=== PATIENT | male | born 1995 | race Caucasian/White ===

== ENCOUNTER 2018-11-06 12:34 | Emergency (ER) | payer OTHER ==
[2018-11-06 12:46] VITALS: BP 120/67
--- NOTE | 2018-11-06 12:52 | EDPHY ---
H & P Stated Complaint: Pt. states aprox Mon am, 2-24quart stainless steel pots fell onto head,SCHMITT, Time Seen by Provider: 11/06/18 12:45 HPI/ROS: CHIEF COMPLAINT: Concussion HISTORY OF PRESENT ILLNESS: The patient is a 23-year-old man who was at work on Saturday and 2 heavy pots, 1 inside the other, weighing approximately 15 lb together, fell from the rack onto his head. They fell about a foot or 2. Hit him on the crown of the head. No loss of consciousness. No neck pain. Has had a mild headache ever since. Mild photophobia. No nausea vomiting. No paresthesias or numbness. His symptoms feel better when he rests but for exacerbated but when he returns to work as he did today. Work sent him here for worker's Comp. No vision changes. No hearing changes although loud noises to give him a headache. Severity: Moderate Modifying factors: Improves with rest REVIEW OF SYSTEMS: Constitutional: denies: chills, fever, recent illness, recent injury EENTM: denies: blurred vision, double vision, nose congestion Respiratory: denies: cough, shortness of breath Cardiac: denies: chest pain, irregular heart rate, lightheadedness, palpitations Gastrointestinal/Abdominal: denies: abdominal pain, diarrhea, nausea, vomiting, blood streaked stools Genitourinary: denies: dysuria, frequency, hematuria, pain Musculoskeletal: denies: joint pain, muscle pain Skin: denies: lesions, rash, jaundice, bruising Neurological: See HPI denies: numbness, paresthesia, tingling, dizziness, weakness Hematologic/Lymphatic: denies: blood clots, easy bleeding, easy bruising Immunologic/allergic: denies: HIV/AIDS, transplant 10 systems reviewed and negative except as noted EXAM: GENERAL: Well-appearing, well-nourished and in no acute distress. HEAD: Atraumatic, normocephalic. EYES: No nystagmus, Pupils equal round and reactive to light, extraocular movements intact, sclera anicteric, conjunctiva are normal. ENT: TMs normal, nares patent, oropharynx clear without exudates. Moist mucous membranes. NECK: Normal range of motion, supple without lymphadenopathy or JVD. LUNGS: Breath sounds clear to auscultation bilaterally and equal. No wheezes rales or rhonchi. HEART: Regular rate and rhythm without murmurs, rubs or gallops. ABDOMEN: Soft, nontender, normoactive bowel sounds. No guarding, no rebound. No masses appreciated. BACK: No CVA tenderness, no spinal tenderness, step-offs or deformities EXTREMITIES: Normal range of motion, no pitting or edema. No clubbing or cyanosis. NEUROLOGICAL: Cranial nerves II through XII grossly intact. Normal speech, normal gait. 5/5 strength, normal movement in all extremities, normal sensation , normal reflexes, normal balance and ambulation PSYCH: Normal mood, normal affect. SKIN: Warm, dry, normal turgor, no visible rashes or lesions. Source: Patient Exam Limitations: No limitations - Personal History Current Tetanus Diphtheria and Acellular Pertussis (TDAP): Yes Tetanus Vaccine Date: 2011 - Medical/Surgical History Hx Asthma: Yes Hx Chronic Respiratory Disease: No Hx Diabetes: No Hx Cardiac Disease: No Hx Renal Disease: No Hx Cirrhosis: No Hx Alcoholism: No Hx HIV/AIDS: No Hx Splenectomy or Spleen Trauma: No Other PMH: Med hx-asthma. Surg-none - Social History Smoking Status: Current every day smoker Constitutional: Initial Vital Signs Temperature (C) 37.1 C 11/06/18 12:42 Heart Rate 68 11/06/18 12:42 Respiratory Rate 16 11/06/18 12:42 Blood Pressure 120/67 11/06/18 12:42 O2 Sat (%) 96 11/06/18 12:42 O2 Delivery Mode Room Air Allergies/Adverse Reactions: No Known Allergies Allergy (Verified 11/06/18 12:42) Home Medications: Medication Instructions Recorded Albuterol Hfa Anes Only 11/06/18 Medical Decision Making ED Course/Re-evaluation: Patient's symptoms are consistent with a mild concussion. We discussed concussion protocol and gradual return to activity. I do not think that imaging would be beneficial. The patient agrees. We discussed follow-up with the concussion Clinic if necessary we discussed indications for returning to the ER. Differential Diagnosis: Partial list of the Differential diagnosis considered include but were not limited to; concussion, hematoma and although unlikely based on the history and physical exam, I also considered fracture, intracranial hemorrhage, cervical spine injury. I discussed these differential diagnoses and the plan with the patient as well as the usual and expected course. The patient understands that the diagnosis is provisional and that in medicine we are not always correct and that further workup is often warranted. Usual and customary warnings were given. All of the patient's questions were answered. The patient was instructed to return to the emergency department should the symptoms at all worsen or return, otherwise to followup with the physician as we discussed. Departure - Departure Disposition: Home, Routine, Self-Care Clinical Impression: Concussion Qualifiers: Encounter type: initial encounter Loss of consciousness presence/duration: without LOC Qualified Code(s): S06.0X0A - Concussion without loss of consciousness, initial encounter Condition: Fair Instructions: Concussion (ED) Referrals: NONE *PRIMARY CARE P,. [Primary Care Provider] - As per Instructions Ananya Oswald MD [Medical Doctor] - 5-7 days, if not improved Stand Alone Forms: Work Comp Follow Up, Work Excuse
== END 2018-11-06 12:58 | disposition home or self-care (01) ==
LOC: CED 12:34
DX: S06.0X0A Concussion without loss of consciousness, initial encounter (principal); W20.8XXA Other cause of strike by thrown, projected or falling object, initial encounter; Y99.0 Civilian activity done for income or pay; Y92.59 Other trade areas as the place of occurrence of the external cause
CPT/HCPCS: 99283-ER